=== PATIENT | female | born 1975 | race Hispanic/Latino ===

== ENCOUNTER 2021-10-15 06:42 | Inpatient (IN) | payer MEDICARE, MEDICAID ==
[2021-10-15] MEDS ORDERED: Acetaminophen 500 MG TAB ONE (07:56)
[2021-10-15] MEDS ORDERED: Ondansetron PF 4 MG/2 ML Vial ONE (07:56)
[2021-10-15 08:24] LABS: #Lymphocytes 1.3 thou/uL (1.20-3.40); #Monocytes 0.8 thou/uL (0.11-0.59); #Neutrophils 6.8 thou/uL (1.40-6.50); %Basophils 0.5 % (0.0-1.0); %Eosinophils 0.1 % (0.0-10.0); %Lymphocytes 14.7 % (21.0-51.0); %Monocytes 9.1 % (0.0-10.0); %Neutrophils 75.5 % (42.0-75.0); Hemoglobin 10.3 g/dL (12.0-16.0); Mean Corpuscular HGB CONC 32.1 g/dL (32.0-36.0); Mean Corpuscular Hemoglobin 34.3 pg (27.0-31.0); Mean Platelet Volume 7.1 fL (7.4-10.4); Platelet Count 185 thou/uL (130-400); RBC Distribution Width 12.4 % (11.5-14.5); Red Blood Cell (RBC) Count 3.02 mill/uL (4.20-5.40)
[2021-10-15 08:41] LABS: ALT (SGPT) 49 U/L (8-55); AST (SGOT) 35 U/L (5-34); Albumin 3.8 g/dL (3.5-5.0); Alkaline Phosphatase 103 U/L (40-110); Anion Gap 19 mmol/L (10-20); BUN (Urea Nitrogen) 52 mg/dL (7.0-18.7); Bilirubin, Total 0.4 mg/dL (0.2-1.2); Calc. Creatinine Clearance 0 mL/min (70-130); Calcium 8.3 mg/dL (7.8-10.44); Carbon Dioxide 26 mmol/L (22-29); Chloride 96 mmol/L (98-107); Globulin 2.6 g/dL (2.4-3.5); Glucose 183 mg/dL (70-105); Potassium 5.1 mmol/L (3.5-5.1); Protein, Total 6.4 g/dL (6.0-8.3); Sodium 136 mmol/L (136-145)
[2021-10-15] MEDS ORDERED: cefTRIAXone\\ROCEPHIN 2 GM VIAL ONE (08:50)
[2021-10-15] MEDS ORDERED: Azithromycin 500 MG VIAL ONE (08:50)
[2021-10-15 08:52] LABS: MDiff Complete? YES; Platelet Morphology Comment Appears Adequate; Polychromasia SLIGHT = 2-3 cells (100X) (0-2/hpf)
[2021-10-15] MEDS ORDERED: Acetaminophen 650 MG Suppository PR PRN (10:54)
[2021-10-15] MEDS ORDERED: Senokot S 8.6-50 MG TAB PO PRN (10:54)
[2021-10-15] MEDS ORDERED: HumaLOG 300 UNITS/3 ML VIAL SC PRN (10:54)
[2021-10-15] MEDS ORDERED: Dextrose 5% in Water 1,000 ML IV PRN (10:54)
[2021-10-15] MEDS ORDERED: Ondansetron ODT 4 MG TAB PO PRN (10:54)
[2021-10-15] MEDS ORDERED: Dextrose 50% Abboject 50 ML SYRINGE SLOW IVP PRN (10:54)
[2021-10-15 11:21] VITALS: BMI 29.2
[2021-10-15] MEDS ORDERED: Lisinopril 20 MG TAB PO SCH (13:00)
[2021-10-15] MEDS ORDERED: Furosemide 100 MG/10 ML VIAL SLOW IVP SCH (13:00)
[2021-10-15] MEDS: Guaifenesin DM 100-10/5 ML UDCUP PO PRN (13:53)
[2021-10-15] MEDS: Heparin 5,000 UNITS/ML VIAL SC SCH ×2 (13:54→22:11)
[2021-10-15] MEDS: Ondansetron PF 4 MG/2 ML Vial IVP PRN ×2 (14:01→22:12)
[2021-10-15] MEDS ORDERED: Famotidine 20 MG TAB PO SCH (21:00)
[2021-10-16] MEDS: Guaifenesin DM 100-10/5 ML UDCUP PO PRN ×2 (01:05→22:17)
[2021-10-16] MEDS: Ondansetron PF 4 MG/2 ML Vial IVP PRN ×3 (04:31→22:11)
[2021-10-16 07:02] LABS: #Lymphocytes 2.6 thou/uL (1.20-3.40); #Monocytes 0.7 thou/uL (0.11-0.59); #Neutrophils 6.7 thou/uL (1.40-6.50); %Basophils 0.2 % (0.0-1.0); %Eosinophils 0.1 % (0.0-10.0); %Lymphocytes 25.9 % (21.0-51.0); %Monocytes 6.9 % (0.0-10.0); %Neutrophils 66.9 % (42.0-75.0); Mean Corpuscular HGB CONC 32.7 g/dL (32.0-36.0); Mean Corpuscular Hemoglobin 35.1 pg (27.0-31.0); Mean Platelet Volume 7.3 fL (7.4-10.4); Platelet Count 160 thou/uL (130-400); RBC Distribution Width 12.4 % (11.5-14.5); Red Blood Cell (RBC) Count 2.84 mill/uL (4.20-5.40); White Blood Cell (WBC) Count 10.1 thou/uL (4.8-10.8)
[2021-10-16 07:21] LABS: Anion Gap 17 mmol/L (10-20); BUN (Urea Nitrogen) 59 mg/dL (7.0-18.7); Calc. Creatinine Clearance 8 mL/min (70-130); Calcium 8.3 mg/dL (7.8-10.44); Carbon Dioxide 25 mmol/L (22-29); Chloride 95 mmol/L (98-107); Glucose 87 mg/dL (70-105); Potassium 5.2 mmol/L (3.5-5.1); Sodium 132 mmol/L (136-145)
[2021-10-16] MEDS ORDERED: Lisinopril 20 MG TAB PO SCH ×2 (09:00→21:00)
[2021-10-16] MEDS ORDERED: Lantus 1000 UNITS/10 ML VIAL SC SCH (09:00)
[2021-10-16 09:49] LABS: HBSAg Index 0.88 S/CO (0-0.99); Hep B Surf Ag Non-Reactive S/CO (NonReactive)
[2021-10-16 09:51] LABS: HBSAB Concentration 17.22 mIU/mL; Hep B Surf AB Reactive (NonReactive)
[2021-10-16] MEDS: Heparin 5,000 UNITS/ML VIAL SC SCH ×3 (09:55→22:15)
[2021-10-16] MEDS: Azithromycin 500 MG in Sodium Chloride 0.9% 250 ML 250 ML IVPB SCH (14:55)
[2021-10-16] MEDS: Folic Acid/Vit B Comp W-C PO SCH (14:56)
[2021-10-16] MEDS: Cholecalciferol 1,000 UNITS (25 MCG) TAB PO SCH (14:56)
[2021-10-16] MEDS: Insulin Glargine 30 UNITS/0.3 ML VIAL SC SCH (14:57)
[2021-10-16] MEDS: Acetaminophen 325 MG TAB PO PRN (17:55)
[2021-10-16] MEDS: cefTRIAXone\\ROCEPHIN 1 GM in Sodium Chloride 0.9% 100 ML IVPB SCH (17:55)
[2021-10-16] MEDS: Famotidine 20 MG TAB PO SCH (22:15)
[2021-10-17] MEDS: Cholecalciferol 1,000 UNITS (25 MCG) TAB PO SCH (09:10)
[2021-10-17] MEDS: Azithromycin 500 MG in Sodium Chloride 0.9% 250 ML 250 ML IVPB SCH (09:11)
[2021-10-17] MEDS: Folic Acid/Vit B Comp W-C PO SCH (09:11)
[2021-10-17] MEDS: Acetaminophen 325 MG TAB PO PRN (09:12)
[2021-10-17] MEDS: Heparin 5,000 UNITS/ML VIAL SC SCH ×3 (09:12→22:34)
[2021-10-17] MEDS: cefTRIAXone\\ROCEPHIN 1 GM in Sodium Chloride 0.9% 100 ML IVPB SCH (09:13)
[2021-10-17] MEDS: Insulin Glargine 30 UNITS/0.3 ML VIAL SC SCH (09:14)
[2021-10-17] MEDS: Guaifenesin DM 100-10/5 ML UDCUP PO PRN ×2 (09:21→16:27)
[2021-10-17] MEDS ORDERED: Benzonatate 100 MG CAP PO PRN (10:01)
[2021-10-17] MEDS ORDERED: Metoclopramide HCl 10 MG TAB PO SCH (12:45)
[2021-10-17] MEDS ORDERED: Lisinopril 20 MG TAB PO SCH (12:45)
[2021-10-17] MEDS: Metoclopramide HCl 10 MG TAB PO SCH ×2 (16:26→22:35)
[2021-10-17] MEDS: Ondansetron PF 4 MG/2 ML Vial IVP PRN (16:27)
[2021-10-17] MEDS: Famotidine 20 MG TAB PO SCH (22:33)
[2021-10-17] MEDS: Lisinopril 20 MG TAB PO SCH (22:35)
[2021-10-18 06:16] LABS: Hemoglobin 9.6 g/dL (12.0-16.0); Mean Corpuscular HGB CONC 32.5 g/dL (32.0-36.0); Mean Corpuscular Hemoglobin 34.2 pg (27.0-31.0); Mean Platelet Volume 7.3 fL (7.4-10.4); Platelet Count 193 thou/uL (130-400); RBC Distribution Width 12.2 % (11.5-14.5); Red Blood Cell (RBC) Count 2.79 mill/uL (4.20-5.40); White Blood Cell (WBC) Count 5.7 thou/uL (4.8-10.8)
[2021-10-18 06:36] LABS: Albumin 3.3 g/dL (3.5-5.0); Anion Gap 18 mmol/L (10-20); BUN (Urea Nitrogen) 37 mg/dL (7.0-18.7); Calc. Creatinine Clearance 10 mL/min (70-130); Calcium 8.6 mg/dL (7.8-10.44); Carbon Dioxide 25 mmol/L (22-29); Chloride 96 mmol/L (98-107); Glucose 139 mg/dL (70-105); Phosphorus 5.9 mg/dL (2.3-4.7); Sodium 135 mmol/L (136-145)
[2021-10-18] MEDS ORDERED: Epoetin (ESRD) 20,000 UNITS/ML SC SCH (06:45)
[2021-10-18] MEDS ORDERED: Lisinopril 20 MG TAB PO SCH (09:00)
[2021-10-18] MEDS: Heparin 5,000 UNITS/ML VIAL SC SCH ×3 (09:02→20:19)
[2021-10-18] MEDS: Insulin Glargine 30 UNITS/0.3 ML VIAL SC SCH (09:04)
[2021-10-18] MEDS: Metoclopramide HCl 10 MG TAB PO SCH ×4 (09:05→20:19)
[2021-10-18] MEDS: Azithromycin 500 MG in Sodium Chloride 0.9% 250 ML 250 ML IVPB SCH (09:51)
[2021-10-18] MEDS: cefTRIAXone\\ROCEPHIN 1 GM in Sodium Chloride 0.9% 100 ML IVPB SCH (11:40)
[2021-10-18] MEDS: HumaLOG 300 UNITS/3 ML VIAL SC PRN (11:40)
[2021-10-18] MEDS ORDERED: EPOETIN ALFA-EPBX (ESRD) 40,000 UNIT/ML VIAL SC SCH (12:00)
[2021-10-18] MEDS: Lisinopril 20 MG TAB PO SCH ×2 (16:13→20:19)
[2021-10-18] MEDS: Cholecalciferol 1,000 UNITS (25 MCG) TAB PO SCH (18:08)
[2021-10-18] MEDS: Folic Acid/Vit B Comp W-C PO SCH (18:09)
[2021-10-18] MEDS ORDERED: EPOETIN ALFA-EPBX (ESRD) 10,000 UNIT/ML VIAL SC SCH (18:30)
[2021-10-18] MEDS: Famotidine 20 MG TAB PO SCH (20:18)
[2021-10-19 03:24] VITALS: TEMP 98.2
[2021-10-19] MEDS: Lisinopril 20 MG TAB PO SCH (07:49)
[2021-10-19] MEDS: Heparin 5,000 UNITS/ML VIAL SC SCH ×2 (07:49→16:15)
[2021-10-19] MEDS: Folic Acid/Vit B Comp W-C PO SCH (07:49)
[2021-10-19] MEDS: Metoclopramide HCl 10 MG TAB PO SCH ×3 (07:49→16:15)
[2021-10-19] MEDS: Cholecalciferol 1,000 UNITS (25 MCG) TAB PO SCH (07:49)
[2021-10-19] MEDS: Insulin Glargine 30 UNITS/0.3 ML VIAL SC SCH (07:50)
[2021-10-19 07:54] VITALS: BP 176/91
[2021-10-19] MEDS: Azithromycin 500 MG in Sodium Chloride 0.9% 250 ML 250 ML IVPB SCH (09:57)
[2021-10-19] MEDS: cefTRIAXone\\ROCEPHIN 1 GM in Sodium Chloride 0.9% 100 ML IVPB SCH (09:57)
[2021-10-19] MEDS: HumaLOG 300 UNITS/3 ML VIAL SC PRN (11:56)
== END 2021-10-19 17:36 | disposition home or self-care (01) | DRG 871 ==
LOC: ERS 06:42 → T4-A 09:48
PROVIDERS: ADMIT Family Medicine; ATTEND Family Medicine
PROC: 5A1D70Z Performance of Urinary Filtration, Intermittent, Less than 6 Hours Per Day (ICD-10-PCS; principal; 2021-10-18)
DX: A41.89 Other specified sepsis (principal); J10.00 Influenza due to other identified influenza virus with unspecified type of pneumonia; J96.01 Acute respiratory failure with hypoxia; N18.6 End stage renal disease; I12.0 Hypertensive chronic kidney disease with stage 5 chronic kidney disease or end stage renal disease; E87.5 Hyperkalemia; D63.1 Anemia in chronic kidney disease; E10.22 Type 1 diabetes mellitus with diabetic chronic kidney disease; Z99.2 Dependence on renal dialysis; Z91.041 Radiographic dye allergy status; Z79.4 Long term (current) use of insulin; Z79.899 Other long term (current) drug therapy; Z85.528 Personal history of other malignant neoplasm of kidney; Z90.5 Acquired absence of kidney; Z98.890 Other specified postprocedural states; Z87.891 Personal history of nicotine dependence; Z20.822 Contact with and (suspected) exposure to COVID-19
CPT/HCPCS: 36415; 36416; 71045; 80048; 80053; 80069; 83605; 85025; 85027; 86706; 87040; 87340; 90935; 93005; 96365; 96367; 96375; 99283; G0257; J0456; J0696; J1644; J1815; J1940; J2405; J3490; J7050; Q0162; Q5105

== ENCOUNTER 2021-10-25 09:21 | Outpatient (CLI) | payer MEDICARE, MEDICAID | END 2021-10-25 09:22 | disposition home or self-care (01) | LOC: RAD 09:21 | PROVIDERS: ATTEND Internal Medicine | DX: J10.00 Influenza due to other identified influenza virus with unspecified type of pneumonia (principal) | CPT/HCPCS: 71046 ==

== ENCOUNTER 2022-02-05 07:13 | Inpatient (IN) | payer MEDICARE, MEDICAID ==
[2022-02-05 07:57] LABS: #Basophils 0.1 thou/uL (0.0-0.2); #Lymphocytes 0.6 thou/uL (1.20-3.40); #Monocytes 0.5 thou/uL (0.11-0.59); #Neutrophils 5.4 thou/uL (1.40-6.50); %Basophils 1.1 % (0.0-1.0); %Eosinophils 0.3 % (0.0-10.0); %Lymphocytes 9.5 % (21.0-51.0); Mean Platelet Volume 7.9 fL (7.4-10.4); Platelet Count 209 thou/uL (130-400); RBC Distribution Width 13.3 % (11.5-14.5); Red Blood Cell (RBC) Count 3.23 mill/uL (4.20-5.40); White Blood Cell (WBC) Count 6.7 thou/uL (4.8-10.8)
[2022-02-05 08:19] LABS: ALT (SGPT) 58 U/L (8-55); AST (SGOT) 39 U/L (5-34); Albumin 4.5 g/dL (3.5-5.0); Alkaline Phosphatase 132 U/L (40-110); Anion Gap 20 mmol/L (10-20); BUN (Urea Nitrogen) 53 mg/dL (7.0-18.7); Bilirubin, Total 0.8 mg/dL (0.2-1.2); Calc. Creatinine Clearance 0 mL/min (70-130); Calcium 9.8 mg/dL (7.8-10.44); Carbon Dioxide 27 mmol/L (22-29); Chloride 96 mmol/L (98-107); Estimated GFR 5; Globulin 3.1 g/dL (2.4-3.5); Glucose 209 mg/dL (70-105); Potassium 5.3 mmol/L (3.5-5.1); Protein, Total 7.6 g/dL (6.0-8.3); Sodium 138 mmol/L (136-145)
[2022-02-05 09:36] LABS: CKMB 1.7 ng/mL (0-6.6)
[2022-02-05] MEDS ORDERED: CEFAZOLIN 2 GM VIAL ONE (09:40)
[2022-02-05] MEDS ORDERED: Vancomycin 1 GM/200 ML BAG ONE (09:40)
[2022-02-05] MEDS ORDERED: Cefepime 2 GM VIAL ONE (09:43)
[2022-02-05] MEDS ORDERED: HYDROcodone/Acetaminophen 10/325 mg Tablet ONE (10:34)
[2022-02-05 10:38] LABS: SARS-CoV-2 NAA Rapid Test DETECTED (NotDetected)
[2022-02-05 11:37] LABS: Actual Bicarbonate (HCO3a) 25.6 mEq/L (22-28); Analyzer IN Cardio ER; Base Excess (BEa) 0.7 mEq/L (-2.0 to +3.0); CO2 Tension 42.5 mmHg (35.0-45.0); Calcium, Ionized (arterial) 1.13 mmol/L (1.12-1.30); Carboxyhemoglobin (COHb) 0.3 gm% (0.0-3.0); Hemoglobin (Hb) 10.4 g/dL (12.0-16.0); Potassium - ABG Lab 5.08 mmol/L (3.70-5.30)
[2022-02-05 11:41] LABS: ALV-art Gradient 353.585 mmHg (0-20); Puncture Site RBA
[2022-02-05] MEDS ORDERED: Dextrose 50% Abboject 50 ML SYRINGE SLOW IVP PRN (12:08)
[2022-02-05] MEDS ORDERED: Dextrose 5% in Water 1,000 ML IV PRN (12:08)
[2022-02-05] MEDS ORDERED: Acetaminophen 325 MG TAB PO PRN (12:15)
[2022-02-05] MEDS ORDERED: Senokot S 8.6-50 MG TAB PO PRN (12:15)
[2022-02-05] MEDS ORDERED: Ondansetron ODT 4 MG TAB PO PRN (12:15)
[2022-02-05] MEDS ORDERED: Dexamethasone 6 MG in Sodium Chloride 0.9% 50 ML IVPB SCH (12:15)
[2022-02-05 12:21] LABS: Troponin I 0.054 ng/mL (< 0.028)
[2022-02-05] MEDS ORDERED: Dexamethasone 10 MG/ML VIAL SLOW IVP SCH (12:45)
[2022-02-05] MEDS ORDERED: guaiFENesin 200 MG TAB PO PRN (13:05)
[2022-02-05 13:35] VITALS: BMI 30.5
[2022-02-05] MEDS ORDERED: Lisinopril 20 MG TAB PO SCH (14:45)
[2022-02-05 15:11] LABS: Troponin I 0.058 ng/mL (< 0.028)
[2022-02-05] MEDS ORDERED: Lorazepam 2 MG/ML VIAL SLOW IVP SCH (16:15)
[2022-02-05] MEDS: Lisinopril 20 MG TAB PO SCH (20:39)
[2022-02-05] MEDS: Heparin 5,000 UNITS/ML VIAL SC SCH (20:40)
[2022-02-06 04:18] LABS: #Lymphocytes 0.9 thou/uL (1.20-3.40); #Monocytes 0.3 thou/uL (0.11-0.59); #Neutrophils 6.5 thou/uL (1.40-6.50); %Basophils 0.3 % (0.0-1.0); %Eosinophils 0.1 % (0.0-10.0); %Monocytes 3.7 % (0.0-10.0); %Neutrophils 84.9 % (42.0-75.0); Hemoglobin 11.2 g/dL (12.0-16.0); Mean Corpuscular HGB CONC 33.6 g/dL (32.0-36.0); Mean Corpuscular Hemoglobin 34.1 pg (27.0-31.0); Mean Platelet Volume 8.3 fL (7.4-10.4); Platelet Count 192 thou/uL (130-400); RBC Distribution Width 13.3 % (11.5-14.5); Red Blood Cell (RBC) Count 3.27 mill/uL (4.20-5.40); White Blood Cell (WBC) Count 7.7 thou/uL (4.8-10.8)
[2022-02-06 04:30] LABS: ALT (SGPT) 42 U/L (8-55); AST (SGOT) 23 U/L (5-34); Albumin 3.9 g/dL (3.5-5.0); Alkaline Phosphatase 120 U/L (40-110); Anion Gap 20 mmol/L (10-20); BUN (Urea Nitrogen) 37 mg/dL (7.0-18.7); Bilirubin, Direct 0.3 mg/dL (0.1-0.3); Bilirubin, Total 0.7 mg/dL (0.2-1.2); Calc. Creatinine Clearance 14 mL/min (70-130); Calcium 9.6 mg/dL (7.8-10.44); Carbon Dioxide 26 mmol/L (22-29); Chloride 95 mmol/L (98-107); Estimated GFR 9; Glucose 369 mg/dL (70-105); Potassium 4.8 mmol/L (3.5-5.1); Protein, Total 7.2 g/dL (6.0-8.3); Sodium 136 mmol/L (136-145)
[2022-02-06] MEDS: HumaLOG 300 UNITS/3 ML VIAL SC PRN ×3 (06:41→20:12)
[2022-02-06] MEDS ORDERED: Sucroferric Oxyhydroxide [Velphoro] 500 MG Tab.Chew PO SCH (08:00)
[2022-02-06] MEDS: Folic Acid/Vit B Comp W-C PO SCH (08:04)
[2022-02-06] MEDS: Ascorbic Acid 500 mg Chewable Tablet PO SCH (08:04)
[2022-02-06] MEDS: Lisinopril 20 MG TAB PO SCH ×2 (08:04→20:10)
[2022-02-06] MEDS: Heparin 5,000 UNITS/ML VIAL SC SCH ×2 (08:05→20:11)
[2022-02-06] MEDS: Cholecalciferol 1,000 UNITS (25 MCG) TAB PO SCH (08:05)
[2022-02-06] MEDS: Zinc Sulfate 220 MG CAP PO SCH (08:05)
[2022-02-06] MEDS ORDERED: Dexamethasone 10 MG/ML VIAL SLOW IVP SCH (09:00)
[2022-02-06] MEDS ORDERED: Non-Formulary Item 1 EACH (Omeprazole [Omeprazole] 40 MG Capsule.Dr) PO SCH (09:00)
[2022-02-06 15:42] LABS: SARS-CoV-2 IgG Spike Ab Interp Reactive (NonReactive); SARS-CoV-2 IgG Spike Conc/Indx 11504.2 AU/mL (0.00-50.0)
[2022-02-06] MEDS: cefTRIAXone\\ROCEPHIN 2 GM in Sodium Chloride 0.9% 100 ML IVPB SCH (20:08)
[2022-02-07] MEDS ORDERED: ALPRAZolam 0.5 MG TAB PO SCH (02:30)
[2022-02-07 04:06] LABS: #Lymphocytes 0.8 thou/uL (1.20-3.40); #Monocytes 0.2 thou/uL (0.11-0.59); #Neutrophils 4.7 thou/uL (1.40-6.50); %Basophils 0.6 % (0.0-1.0); %Eosinophils 0.1 % (0.0-10.0); %Lymphocytes 14.1 % (21.0-51.0); %Monocytes 2.8 % (0.0-10.0); %Neutrophils 82.4 % (42.0-75.0); Hemoglobin 10.5 g/dL (12.0-16.0); Mean Corpuscular HGB CONC 33.6 g/dL (32.0-36.0); Mean Corpuscular Hemoglobin 34.1 pg (27.0-31.0); Mean Platelet Volume 8.4 fL (7.4-10.4); Platelet Count 189 thou/uL (130-400); RBC Distribution Width 13.1 % (11.5-14.5); Red Blood Cell (RBC) Count 3.08 mill/uL (4.20-5.40); White Blood Cell (WBC) Count 5.7 thou/uL (4.8-10.8)
[2022-02-07 04:24] LABS: Anion Gap 20 mmol/L (10-20); BUN (Urea Nitrogen) 65 mg/dL (7.0-18.7); Calc. Creatinine Clearance 10 mL/min (70-130); Calcium 9.1 mg/dL (7.8-10.44); Carbon Dioxide 25 mmol/L (22-29); Chloride 90 mmol/L (98-107); Estimated GFR 6; Glucose 546 mg/dL (70-105); Potassium 5.3 mmol/L (3.5-5.1); Sodium 130 mmol/L (136-145)
[2022-02-07] MEDS: HumaLOG 300 UNITS/3 ML VIAL SC PRN ×3 (06:13→20:21)
[2022-02-07] MEDS: Lisinopril 20 MG TAB PO SCH ×2 (07:42→20:18)
[2022-02-07] MEDS: Heparin 5,000 UNITS/ML VIAL SC SCH ×2 (07:43→20:19)
[2022-02-07] MEDS: Zinc Sulfate 220 MG CAP PO SCH (07:43)
[2022-02-07] MEDS: Folic Acid/Vit B Comp W-C PO SCH (07:43)
[2022-02-07] MEDS: Insulin Glargine 30 UNITS/0.3 ML VIAL SC SCH ×2 (07:43→20:20)
[2022-02-07] MEDS: Cholecalciferol 1,000 UNITS (25 MCG) TAB PO SCH (07:43)
[2022-02-07] MEDS: Ascorbic Acid 500 mg Chewable Tablet PO SCH (07:43)
[2022-02-07] MEDS ORDERED: Non-Formulary Item 1 EACH (Insulin Degludec [Tresiba] 100 UNIT/ML Vial) SQ SCH (09:00)
[2022-02-07] MEDS ORDERED: Insulin Glargine 30 UNITS/0.3 ML VIAL SC SCH ×2 (09:00→16:15)
[2022-02-07] MEDS: cefTRIAXone\\ROCEPHIN 2 GM in Sodium Chloride 0.9% 100 ML IVPB SCH (20:18)
[2022-02-08 03:54] LABS: #Basophils 0.1 thou/uL (0.0-0.2); #Lymphocytes 2.5 thou/uL (1.20-3.40); #Monocytes 0.8 thou/uL (0.11-0.59); #Neutrophils 6.6 thou/uL (1.40-6.50); %Basophils 0.7 % (0.0-1.0); %Eosinophils 0.1 % (0.0-10.0); %Lymphocytes 25.3 % (21.0-51.0); %Monocytes 7.8 % (0.0-10.0); %Neutrophils 66.1 % (42.0-75.0); Hemoglobin 11.4 g/dL (12.0-16.0); Mean Corpuscular HGB CONC 33.6 g/dL (32.0-36.0); Mean Platelet Volume 8.2 fL (7.4-10.4); Platelet Count 226 thou/uL (130-400); RBC Distribution Width 13.1 % (11.5-14.5); Red Blood Cell (RBC) Count 3.36 mill/uL (4.20-5.40); White Blood Cell (WBC) Count 9.9 thou/uL (4.8-10.8)
[2022-02-08 04:13] LABS: Anion Gap 15 mmol/L (10-20); BUN (Urea Nitrogen) 46 mg/dL (7.0-18.7); Calc. Creatinine Clearance 16 mL/min (70-130); Calcium 8.8 mg/dL (7.8-10.44); Carbon Dioxide 28 mmol/L (22-29); Chloride 95 mmol/L (98-107); Estimated GFR 10; Glucose 192 mg/dL (70-105); Potassium 3.9 mmol/L (3.5-5.1); Sodium 134 mmol/L (136-145)
[2022-02-08] MEDS: HumaLOG 300 UNITS/3 ML VIAL SC PRN ×2 (05:57→12:03)
[2022-02-08] MEDS ORDERED: guaiFENesin ER 600 MG TAB PO SCH (09:30)
[2022-02-08] MEDS: Folic Acid/Vit B Comp W-C PO SCH (09:46)
[2022-02-08] MEDS: Ascorbic Acid 500 mg Chewable Tablet PO SCH (09:47)
[2022-02-08] MEDS: Cholecalciferol 1,000 UNITS (25 MCG) TAB PO SCH (09:47)
[2022-02-08] MEDS: Cefdinir 300 MG CAP PO SCH (09:47)
[2022-02-08] MEDS: Zinc Sulfate 220 MG CAP PO SCH (09:47)
[2022-02-08] MEDS: Lisinopril 20 MG TAB PO SCH ×2 (09:47→20:40)
[2022-02-08] MEDS: Insulin Glargine 30 UNITS/0.3 ML VIAL SC SCH ×2 (09:48→20:51)
[2022-02-08] MEDS: Heparin 5,000 UNITS/ML VIAL SC SCH ×2 (09:48→20:39)
[2022-02-08] MEDS: guaiFENesin ER 600 MG TAB PO SCH (20:39)
[2022-02-09] MEDS: HumaLOG 300 UNITS/3 ML VIAL SC PRN (05:41)
[2022-02-09] MEDS: Folic Acid/Vit B Comp W-C PO SCH (10:48)
[2022-02-09] MEDS: Cefdinir 300 MG CAP PO SCH (10:48)
[2022-02-09] MEDS: Zinc Sulfate 220 MG CAP PO SCH (10:48)
[2022-02-09] MEDS: guaiFENesin ER 600 MG TAB PO SCH (10:49)
[2022-02-09] MEDS: Ascorbic Acid 500 mg Chewable Tablet PO SCH (10:49)
[2022-02-09] MEDS: Lisinopril 20 MG TAB PO SCH (10:49)
[2022-02-09] MEDS: Heparin 5,000 UNITS/ML VIAL SC SCH (10:50)
[2022-02-09] MEDS: Insulin Glargine 30 UNITS/0.3 ML VIAL SC SCH (10:50)
[2022-02-09] MEDS: Cholecalciferol 1,000 UNITS (25 MCG) TAB PO SCH (10:53)
[2022-02-09 11:48] VITALS: TEMP 98.1
[2022-02-09 15:12] VITALS: BP 148/77
== END 2022-02-09 15:49 | disposition home or self-care (01) | DRG 871 ==
LOC: ERS 07:13 → OBSVTOIN 11:09 → ERHOLD 11:09 → IMCU/EMU 13:18 → T4-A 02-08 20:13
PROVIDERS: ADMIT Family Medicine; ATTEND Internal Medicine
PROC: 5A0945A Assistance with Respiratory Ventilation, 24-96 Consecutive Hours, High Flow/Velocity Cannula (ICD-10-PCS; principal; 2022-02-05)
PROC: 8E0ZXY6 Isolation (ICD-10-PCS; 2022-02-05)
PROC: 5A1D70Z Performance of Urinary Filtration, Intermittent, Less than 6 Hours Per Day (ICD-10-PCS; 2022-02-05)
PROC: 3E03329 Introduction of Other Anti-infective into Peripheral Vein, Percutaneous Approach (ICD-10-PCS; 2022-02-05)
DX: A41.89 Other specified sepsis (principal); U07.1 COVID-19; J12.82 Pneumonia due to coronavirus disease 2019; J96.01 Acute respiratory failure with hypoxia; N18.6 End stage renal disease; J18.9 Pneumonia, unspecified organism; R65.20 Severe sepsis without septic shock; F41.9 Anxiety disorder, unspecified; R79.89 Other specified abnormal findings of blood chemistry; E10.22 Type 1 diabetes mellitus with diabetic chronic kidney disease; M19.90 Unspecified osteoarthritis, unspecified site; Z96.653 Presence of artificial knee joint, bilateral; E87.5 Hyperkalemia; D63.1 Anemia in chronic kidney disease; E10.319 Type 1 diabetes mellitus with unspecified diabetic retinopathy without macular edema; F32.A Depression, unspecified; I10 Essential (primary) hypertension; Z99.2 Dependence on renal dialysis; Z87.891 Personal history of nicotine dependence; Z88.8 Allergy status to other drugs, medicaments and biological substances; Z79.899 Other long term (current) drug therapy; Z79.4 Long term (current) use of insulin; Z98.890 Other specified postprocedural states; Z90.49 Acquired absence of other specified parts of digestive tract; Z98.51 Tubal ligation status; Z83.3 Family history of diabetes mellitus; Z84.1 Family history of disorders of kidney and ureter; Z91.041 Radiographic dye allergy status; Z85.528 Personal history of other malignant neoplasm of kidney; Z90.5 Acquired absence of kidney; Z86.16 Personal history of COVID-19
CPT/HCPCS: 36415; 36416; 36600; 71045; 80048; 80053; 80076; 82553; 82728; 82805; 83605; 83615; 84484; 85025; 85379; 86140; 86769; 87040; 90935; 93005; 94760; 96374; 96375; G0257; G0378; J0690; J0692; J0696; J1100; J1644; J1815; J2060; J3370; J3490; Q0162

== ENCOUNTER 2022-03-02 15:58 | Emergency (ER) | payer MEDICARE, MEDICAID ==
[~2022-03-02 15:58] MED LIST: Iopamidol-370 76% 500 ML 1 ML ONE
[2022-03-02] MEDS ORDERED: diphenhydrAMINE 50 MG/ML VIAL ONE (16:48)
[2022-03-02] MEDS ORDERED: Famotidine/PF 20 mg/2ml Vial ONE (16:48)
[2022-03-02] MEDS ORDERED: methylPREDNISolone Sod Succ 40 MG VIAL ONE (16:48)
[2022-03-02 16:49] LABS: #Basophils 0.1 thou/uL (0.0-0.2); #Eosinphils 0.2 thou/uL (0.0-0.7); #Lymphocytes 2.4 thou/uL (1.20-3.40); #Monocytes 0.4 thou/uL (0.11-0.59); #Neutrophils 2.6 thou/uL (1.40-6.50); %Basophils 1.8 % (0.0-1.0); %Eosinophils 3.6 % (0.0-10.0); %Lymphocytes 41.7 % (21.0-51.0); %Neutrophils 45.9 % (42.0-75.0); Hemoglobin 10.1 g/dL (12.0-16.0); Mean Corpuscular HGB CONC 33.3 g/dL (32.0-36.0); Mean Corpuscular Hemoglobin 33.5 pg (27.0-31.0); Mean Platelet Volume 7.5 fL (7.4-10.4); Platelet Count 225 thou/uL (130-400); Red Blood Cell (RBC) Count 3.02 mill/uL (4.20-5.40); White Blood Cell (WBC) Count 5.8 thou/uL (4.8-10.8)
[2022-03-02 17:10] LABS: ALT (SGPT) 44 U/L (8-55); AST (SGOT) 42 U/L (5-34); Albumin 4.3 g/dL (3.5-5.0); Alkaline Phosphatase 107 U/L (40-110); Anion Gap 18 mmol/L (10-20); BUN (Urea Nitrogen) 11 mg/dL (7.0-18.7); Bilirubin, Total 0.6 mg/dL (0.2-1.2); Calc. Creatinine Clearance 0 mL/min (70-130); Calcium 9.7 mg/dL (7.8-10.44); Carbon Dioxide 30 mmol/L (22-29); Chloride 97 mmol/L (98-107); Estimated GFR 22; Globulin 3.3 g/dL (2.4-3.5); Glucose 137 mg/dL (70-105); Potassium 3.5 mmol/L (3.5-5.1); Protein, Total 7.6 g/dL (6.0-8.3); Sodium 141 mmol/L (136-145)
[2022-03-02 19:05] LABS: Troponin I 0.016 ng/mL (< 0.028)
== END 2022-03-02 20:17 | disposition home or self-care (01) ==
LOC: ERS 15:58
DX: J90 Pleural effusion, not elsewhere classified (principal); E11.22 Type 2 diabetes mellitus with diabetic chronic kidney disease; I13.0 Hypertensive heart and chronic kidney disease with heart failure and stage 1 through stage 4 chronic kidney disease, or unspecified chronic kidney disease; N18.9 Chronic kidney disease, unspecified; I50.9 Heart failure, unspecified; Z86.73 Personal history of transient ischemic attack (TIA), and cerebral infarction without residual deficits; Z87.891 Personal history of nicotine dependence; Z79.899 Other long term (current) drug therapy; Z79.4 Long term (current) use of insulin
CPT/HCPCS: 71045; 71275; 80053; 84484; 85025; 93005; 96374; 96375; J1200; J2920; Q9967; S0028

== ENCOUNTER 2025-02-11 13:01 | Outpatient (CLI) | payer MEDICARE | END 2025-02-11 13:02 | disposition home or self-care (01) | LOC: BICRAD 13:01 → RAD 13:02 | PROVIDERS: ATTEND Family Medicine | DX: R07.89 Other chest pain (principal); R91.8 Other nonspecific abnormal finding of lung field ==

== ENCOUNTER 2025-03-22 04:58 | Emergency (ER) | payer MEDICARE | END 2025-03-22 08:29 | disposition home or self-care (01) | LOC: ERS 04:58 | DX: J18.9 Pneumonia, unspecified organism (principal); I10 Essential (primary) hypertension; E11.9 Type 2 diabetes mellitus without complications; F17.290 Nicotine dependence, other tobacco product, uncomplicated | CPT/HCPCS: 71045; 87428 ==